=== PATIENT | male | born 1995 | race Caucasian/White ===

== ENCOUNTER 2017-11-25 00:46 | Emergency (ER) | payer SELFPAY ==
[~2017-11-25] VITALS: Ht 171 cm; Wt 71.0 kg
[2017-11-25 00:51] VITALS: BP 150/80; TEMP 98.7
[2017-11-25] MEDS ORDERED: NORCO 325 MG-51 TAB PO (02:10)
[2017-11-25 02:46] VITALS: PULSE 92
== END 2017-11-25 02:48 | disposition home or self-care (01) ==
LOC: COL.ER 00:46
DX: S62.304A Unspecified fracture of fourth metacarpal bone, right hand, initial encounter for closed fracture (principal); S62.306A Unspecified fracture of fifth metacarpal bone, right hand, initial encounter for closed fracture; W22.8XXA Striking against or struck by other objects, initial encounter; Y92.009 Unspecified place in unspecified non-institutional (private) residence as the place of occurrence of the external cause
CPT/HCPCS: Q4021

== ENCOUNTER 2017-11-30 19:11 | Emergency (ER) | payer SELFPAY ==
[~2017-11-30] VITALS: Ht 171 cm; Wt 70.0 kg
[~2017-11-30 19:11] MED LIST: NORCO 325 MG-51 TAB PO
[2017-11-30 19:13] VITALS: BP 148/97; TEMP 98.8
[2017-11-30 19:51] VITALS: PULSE 75
== END 2017-11-30 19:51 | disposition home or self-care (01) ==
LOC: COL.ER 19:11
DX: S61.315D Laceration without foreign body of left ring finger with damage to nail, subsequent encounter (principal); S62.317D Displaced fracture of base of fifth metacarpal bone, left hand, subsequent encounter for fracture with routine healing; X58.XXXD Exposure to other specified factors, subsequent encounter